=== PATIENT | female | born 1935 | race Caucasian/White ===

== ENCOUNTER 2016-12-19 07:59 | Inpatient (IN) | payer MEDICARE ==
[~2016-12-19] VITALS: Ht 165.1 cm; Wt 72.4 kg
[~2016-12-19 07:59] MED LIST: ALEN70TA5 PO; CITA10TA4 PO; DICL75TA2 PO; GABA600T PO; LISI-170 PO; LOVA40TA2 PO; METH750T87 PO; OMEP-110 PO; OXYC-302 PO
[2016-12-19] MEDS ORDERED: SODIUM CHLORIDE FLUSH 10ML SYR IVF ONE (09:00)
[2016-12-19] MEDS ORDERED: DICL75TA2 PO (09:03)
[2016-12-19 09:11] LABS: ASPARTATE AMINO TRANSFERASE 16 U/L (15-37); BLOOD UREA NITROGEN 24 mg/dL (7-18)
[2016-12-19 09:15] LABS: IS PT STATUS REG ER OR PRE ER? YES
[2016-12-19] MEDS ORDERED: LEVOFLOXACIN/PMX 750MG/150ML 150 ML ONE (09:34)
[2016-12-19 11:49] VITALS: BP 147/73
[2016-12-19] MEDS ORDERED: ONDANSETRON 2MG/ML, 2ML IVP PRN (13:00)
[2016-12-19] MEDS ORDERED: ACETAMINOPHEN 325 MG TABLET PO PRN (13:00)
[2016-12-19] MEDS ORDERED: ONDANSETRON ODT 4 MG PO PRN (13:00)
[2016-12-19] MEDS ORDERED: DOCUSATE 100 MG CAPSULE PO PRN (13:00)
[2016-12-19] MEDS ORDERED: BISACODYL 10 MG SUPP PR PRN (13:00)
[2016-12-19] MEDS ORDERED: POLYETHYLENE GLYCOL 17 GM PACKET PO PRN (13:00)
[2016-12-19] MEDS: METOPROLOL TARTRATE 25 MG TABLET PO SCH ×2 (14:00→21:10)
[2016-12-19 14:35] VITALS: BP 164/67
[2016-12-19 14:46] LABS: IS PT STATUS REG ER OR PRE ER? NO
[2016-12-19] MEDS: GABAPENTIN 300 MG CAPSULE PO SCH ×2 (15:47→21:10)
[2016-12-19 20:00] VITALS: BP 143/77
[2016-12-19] MEDS ORDERED: LOVASTATIN 40 MG TABLET PO SCH (21:00)
[2016-12-19] MEDS: LOVASTATIN 40 MG TABLET PO SCH (21:00)
[2016-12-19] MEDS: LACTULOSE 10 GM/15 ML UDC PO SCH (21:00)
[2016-12-19 22:14] LABS: IS PT STATUS REG ER OR PRE ER? NO
[2016-12-19] MEDS ORDERED: PRAMOXINE/ZINC OXIDE 28GM EXT PRN (22:30)
[2016-12-20 02:00] VITALS: BP 134/71
[2016-12-20 05:40] VITALS: BP 130/51
[2016-12-20] MEDS: METOPROLOL TARTRATE 25 MG TABLET PO SCH ×2 (05:41→17:55)
[2016-12-20 06:30] VITALS: BP 121/50
[2016-12-20 06:54] LABS: BLOOD UREA NITROGEN 21 mg/dL (7-18)
[2016-12-20] MEDS: OMEPRAZOLE 20 MG CAPSULE.DR PO SCH (08:07)
[2016-12-20] MEDS: GABAPENTIN 300 MG CAPSULE PO SCH ×3 (08:07→20:41)
[2016-12-20] MEDS: CITALOPRAM 10 MG TABLET PO SCH (08:07)
[2016-12-20] MEDS: LACTULOSE 10 GM/15 ML UDC PO SCH ×2 (08:07→20:41)
[2016-12-20] MEDS: LISINOPRIL 20 MG TABLET PO SCH ×2 (08:08)
[2016-12-20 13:59] VITALS: BP 88/66
[2016-12-20] MEDS ORDERED: FENTANYL PF 100 MCG/2ML ONE (15:29)
[2016-12-20] MEDS ORDERED: BIVALIRUDIN 250 MG ONE (15:30)
[2016-12-20] MEDS ORDERED: VERAPAMIL 2.5 MG/ML, 2ML ONE (15:30)
[2016-12-20] MEDS ORDERED: NITROGLYCERIN 5 MG/ML, 10ML ONE (15:30)
[2016-12-20] MEDS ORDERED: TICAGRELOR 90 MG TABLET ONE (15:30)
[2016-12-20] MEDS ORDERED: HEPARIN 1,000 UNITS/ML, 10ML ONE (15:30)
[2016-12-20] MEDS ORDERED: MIDAZOLAM 1 MG/ML, 5ML ONE (15:30)
[2016-12-20] MEDS ORDERED: LIDOCAINE 2%, 20ML ONE (15:30)
[2016-12-20] MEDS ORDERED: ACETAMINOPHEN 325 MG TABLET PO PRN (16:30)
[2016-12-20 19:07] VITALS: BP 88/42
[2016-12-20] MEDS: LOVASTATIN 40 MG TABLET PO SCH (20:41)
[2016-12-21 02:00] VITALS: BP 119/51
[2016-12-21 06:03] LABS: HEMOGLOBIN 11.6 g/dL (11.7-16.4)
[2016-12-21] MEDS: METOPROLOL TARTRATE 25 MG TABLET PO SCH (06:17)
[2016-12-21 06:40] VITALS: BP 135/69
[2016-12-21] MEDS: CITALOPRAM 10 MG TABLET PO SCH (08:57)
[2016-12-21] MEDS: LISINOPRIL 20 MG TABLET PO SCH ×2 (08:57→08:58)
[2016-12-21] MEDS: OMEPRAZOLE 20 MG CAPSULE.DR PO SCH (08:57)
[2016-12-21] MEDS: GABAPENTIN 300 MG CAPSULE PO SCH ×2 (08:58→16:00)
[2016-12-21] MEDS: LACTULOSE 10 GM/15 ML UDC PO SCH (08:58)
[2016-12-21 12:46] VITALS: BP 135/71
[2016-12-21] MEDS ORDERED: METO25TA35 PO (13:32)
== END 2016-12-21 16:17 | disposition home or self-care (01) | DRG 287 ==
LOC: ED 09:47 → INTOOBSV 09:48 → EDIP 09:48 → ED 09:56 → 5SO 11:32 → OBSVTOIN 12-20 16:03
PROVIDERS: ADMIT Internal Medicine; ATTEND Internal Medicine
PROC: B2111ZZ Fluoroscopy of Multiple Coronary Arteries using Low Osmolar Contrast (ICD-10-PCS; principal; 2016-12-20)
PROC: 4A023N7 Measurement of Cardiac Sampling and Pressure, Left Heart, Percutaneous Approach (ICD-10-PCS; 2016-12-20)
DX: I35.0 Nonrheumatic aortic (valve) stenosis (principal); E78.5 Hyperlipidemia, unspecified; I10 Essential (primary) hypertension; I49.3 Ventricular premature depolarization; B19.20 Unspecified viral hepatitis C without hepatic coma; F32.9 Major depressive disorder, single episode, unspecified; I25.10 Atherosclerotic heart disease of native coronary artery without angina pectoris; M19.90 Unspecified osteoarthritis, unspecified site; D72.819 Decreased white blood cell count, unspecified; Z85.6 Personal history of leukemia; Z90.49 Acquired absence of other specified parts of digestive tract; Z87.891 Personal history of nicotine dependence
CPT/HCPCS: 36415; 71010; 80048; 80053; 83735; 83880; 84484; 85025; 85610; 93005; 93306; 93458; 99285; C1894; G0378; J0583; J1644; J2250; J3010; J3490; Q9967

== ENCOUNTER 2017-05-25 08:35 | Inpatient (IN) | payer MEDICARE ==
[2017-05-24 13:34] VITALS: BP 171/67
[2017-05-24 13:37] LABS: HEMATOCRIT 42.9 % (34.6-47.8); HEMOGLOBIN 14.1 g/dL (11.7-16.4); WHITE BLOOD COUNT 4.2 x10^3/uL (3.4-10)
[2017-05-24 13:48] LABS: BLOOD UREA NITROGEN 25 mg/dL (7-18)
[2017-05-24 13:51] LABS: ASPARTATE AMINO TRANSFERASE 15 U/L (15-37)
[~2017-05-25] VITALS: Ht 165.1 cm; Wt 74.4 kg
[~2017-05-25 08:35] MED LIST changes: +CLOP75TA PO; +METO25TA35 PO
[2017-05-25] MEDS ORDERED: SODIUM CHLORIDE 0.9% 1,000 ML IV SCH ×2 (09:34)
[2017-05-25] MEDS ORDERED: ISOPROTERENOL 0.2MG/ML, 5ML ONE (11:34)
[2017-05-25] MEDS ORDERED: HEPARIN 1,000 UNITS/ML, 10ML ONE (11:35)
[2017-05-25] MEDS ORDERED: MIDAZOLAM 1 MG/ML, 5ML ONE (11:40)
[2017-05-25] MEDS ORDERED: FENTANYL PF 100 MCG/2ML ONE (11:40)
[2017-05-25] MEDS ORDERED: LIDOCAINE 2%, 20ML ONE ×2 (11:44→12:18)
[2017-05-25] MEDS ORDERED: PROPOFOL 10 MG/ML, 20ML ONE (11:54)
[2017-05-25] MEDS ORDERED: SUCCINYLCHOLINE 20 MG/ML, 10ML ONE (11:54)
[2017-05-25] MEDS ORDERED: DEXAMETHASONE 4 MG/ML, 1ML ONE (11:54)
[2017-05-25] MEDS ORDERED: CEFAZOLIN 1,000 MG ONE ×2 (11:54→12:18)
[2017-05-25] MEDS ORDERED: ONDANSETRON 2MG/ML, 2ML ONE (11:54)
[2017-05-25] MEDS ORDERED: ZOLPIDEM 5MG TABLET PO PRN (13:30)
[2017-05-25] MEDS ORDERED: HYDROcodone/APAP 5/325 TABLET PO PRN (13:30)
[2017-05-25] MEDS ORDERED: ACETAMINOPHEN 650 MG/20.3 ML UDC ONE (13:43)
[2017-05-25] MEDS ORDERED: FENTANYL PF 100 MCG/2ML IV PRN (14:00)
[2017-05-25] MEDS ORDERED: HYDROmorphone 1 MG/ML, 1ML IV PRN (14:00)
[2017-05-25] MEDS ORDERED: OXYcodone 5 MG/5 ML ORAL.SOL UDC PO PRN (14:00)
[2017-05-25] MEDS ORDERED: MIDAZOLAM 1 MG/ML, 2ML IV PRN (14:00)
[2017-05-25] MEDS ORDERED: ACETAMINOPHEN 325 MG TABLET PO PRN (14:00)
[2017-05-25] MEDS ORDERED: ONDANSETRON 2MG/ML, 2ML IVPush PRN (14:00)
[2017-05-25] MEDS: SOTALOL 80MG TABLET PO SCH (17:31)
[2017-05-25 20:26] VITALS: BP 121/59
[2017-05-25] MEDS: CEFAZOLIN PMX 1GM/50ML 50 ML IVPB SCH ×2 (20:33→21:00)
[2017-05-25] MEDS: LOVASTATIN 40 MG TABLET PO SCH (21:37)
[2017-05-25] MEDS: GABAPENTIN 300 MG CAPSULE PO SCH (21:37)
[2017-05-25] MEDS: SODIUM CHLORIDE FLUSH 10ML SYR IVF SCH (21:39)
[2017-05-26 01:57] VITALS: BP 127/56
[2017-05-26] MEDS: SOTALOL 80MG TABLET PO SCH ×2 (05:02→17:21)
[2017-05-26 07:16] VITALS: BP 162/73
[2017-05-26] MEDS ORDERED: CLOPIDOGREL 75 MG TABLET PO SCH (09:00)
[2017-05-26] MEDS: CITALOPRAM 10 MG TABLET PO SCH (09:48)
[2017-05-26] MEDS: LISINOPRIL 20 MG TABLET PO SCH (09:48)
[2017-05-26] MEDS: GABAPENTIN 300 MG CAPSULE PO SCH ×3 (09:48→21:59)
[2017-05-26] MEDS: DICLOFENAC SODIUM 75 MG TABLET.DR PO SCH (09:49)
[2017-05-26] MEDS: SODIUM CHLORIDE FLUSH 10ML SYR IVF SCH ×2 (10:00→21:59)
[2017-05-26 14:12] VITALS: BP 138/69
[2017-05-26 19:19] VITALS: BP 131/72
[2017-05-26] MEDS: LOVASTATIN 40 MG TABLET PO SCH (21:58)
[2017-05-27 02:00] VITALS: BP 156/70
[2017-05-27] MEDS: SOTALOL 80MG TABLET PO SCH (06:09)
[2017-05-27 06:45] VITALS: BP 152/84
[2017-05-27] MEDS ORDERED: SOTALOL 80MG TABLET PO ONE (09:00)
[2017-05-27] MEDS: DICLOFENAC SODIUM 75 MG TABLET.DR PO SCH (09:48)
[2017-05-27] MEDS: CITALOPRAM 10 MG TABLET PO SCH (09:49)
[2017-05-27] MEDS: LISINOPRIL 20 MG TABLET PO SCH (09:49)
[2017-05-27] MEDS: GABAPENTIN 300 MG CAPSULE PO SCH ×3 (09:49→20:53)
[2017-05-27] MEDS: SODIUM CHLORIDE FLUSH 10ML SYR IVF SCH ×2 (09:51→20:54)
[2017-05-27 13:28] VITALS: BP 126/73
[2017-05-27] MEDS: SOTALOL 120MG TABLET PO SCH (17:41)
[2017-05-27 19:20] VITALS: BP 139/79
[2017-05-27] MEDS: LOVASTATIN 40 MG TABLET PO SCH (20:54)
[2017-05-28 01:23] VITALS: BP 128/74
[2017-05-28 05:01] LABS: BLOOD UREA NITROGEN 31 mg/dL (7-18)
[2017-05-28 06:13] VITALS: BP 159/81
[2017-05-28] MEDS: SOTALOL 120MG TABLET PO SCH ×2 (06:16→17:27)
[2017-05-28 07:22] VITALS: BP 164/86
[2017-05-28] MEDS: GABAPENTIN 300 MG CAPSULE PO SCH ×3 (08:35→20:31)
[2017-05-28] MEDS: CITALOPRAM 10 MG TABLET PO SCH (08:35)
[2017-05-28] MEDS: SODIUM CHLORIDE FLUSH 10ML SYR IVF SCH ×2 (08:36→20:31)
[2017-05-28] MEDS: LISINOPRIL 20 MG TABLET PO SCH (08:36)
[2017-05-28] MEDS: DICLOFENAC SODIUM 75 MG TABLET.DR PO SCH (08:36)
[2017-05-28] MEDS: METOPROLOL SUCCINATE 25 MG TAB.ER.24H PO SCH (10:53)
[2017-05-28 13:39] VITALS: BP 145/73
[2017-05-28 18:40] VITALS: BP 163/73
[2017-05-28] MEDS: LOVASTATIN 40 MG TABLET PO SCH (20:31)
[2017-05-29 04:00] VITALS: BP 145/84
[2017-05-29 06:28] VITALS: BP 155/83
[2017-05-29] MEDS: METOPROLOL SUCCINATE 25 MG TAB.ER.24H PO SCH (06:30)
[2017-05-29] MEDS: SOTALOL 120MG TABLET PO SCH (06:30)
[2017-05-29 06:48] VITALS: BP 152/80
[2017-05-29] MEDS: LISINOPRIL 20 MG TABLET PO SCH (08:56)
[2017-05-29] MEDS: GABAPENTIN 300 MG CAPSULE PO SCH (08:56)
[2017-05-29] MEDS: CITALOPRAM 10 MG TABLET PO SCH (08:56)
[2017-05-29] MEDS: DICLOFENAC SODIUM 75 MG TABLET.DR PO SCH (08:56)
[2017-05-29] MEDS: SODIUM CHLORIDE FLUSH 10ML SYR IVF SCH (09:00)
[2017-05-29] MEDS ORDERED: SOTA120T14 PO (12:02)
[2017-05-29 13:00] VITALS: BP 150/73
[2017-05-31] MEDS ORDERED: ALENDRONATE 70 MG TABLET PO SCH (13:30)
== END 2017-05-29 14:31 | disposition home or self-care (01) | DRG 244 ==
LOC: STAR 08:35 → ORIP 13:16 → 5SO 14:39
PROVIDERS: ADMIT Internal Medicine Cardiovascular Disease; ATTEND Internal Medicine Cardiovascular Disease
PROC: 02H63JZ Insertion of Pacemaker Lead into Right Atrium, Percutaneous Approach (ICD-10-PCS; 2017-05-25)
PROC: 02HK3JZ Insertion of Pacemaker Lead into Right Ventricle, Percutaneous Approach (ICD-10-PCS; 2017-05-25)
PROC: 0JH606Z Insertion of Pacemaker, Dual Chamber into Chest Subcutaneous Tissue and Fascia, Open Approach (ICD-10-PCS; principal; 2017-05-25 11:00)
DX: I49.3 Ventricular premature depolarization (principal); I10 Essential (primary) hypertension; E78.5 Hyperlipidemia, unspecified; Z87.891 Personal history of nicotine dependence
CPT/HCPCS: 33208; 36415; 71010; 71020; 80048; 80053; 83735; 85025; 85610; 85730; 93005; C1779; C1785; C1892; J0690; J1100; J1644; J2250; J2405; J2704; J3010; J3490; J0330

== ENCOUNTER → 2018-11-22 | Outpatient (CLI) | payer MEDICARE ==
[~2018-11-22] MED LIST changes: -ALEN70TA5 PO; +ALEN70TA6 PO; -DICL75TA2 PO; +DICL75TA3 PO; +SOTA120T14 PO
[2018-11-22 12:57] LABS: ALANINE AMINOTRANSFERASE 20 U/L (12-78); ALBUMIN 3.5 g/dL (3.4-5.0); CALCIUM 8.7 mg/dL (8.5-10.1); CHLORIDE 109 mmol/L (98-107); CHOLESTEROL, TOTAL 151 mg/dL (140-239); CREATININE 0.93 mg/dL (0.55-1.02); TRIGLYCERIDES 224 mg/dL (50-200); VLDL CHOLESTEROL 45 mg/dL (0-25)
[2018-11-22 13:01] LABS: ALKALINE PHOSPHATASE 68 U/L (45-117); BILIRUBIN,TOTAL 0.5 mg/dL (0.2-1.0); CHOL/HDL RATIO 4.9; HDL CHOL % 21 % (28-40); HDL CHOLESTEROL (DIRECT) 31 mg/dL (40-60); LDL CHOLESTEROL,CALCULATED 75 mg/dL (54-169); LDL/HDL RATIO 2.4 (0.5-3.0); TOTAL PROTEIN 7.4 g/dL (6.4-8.2)
[2018-11-22 13:12] LABS: ANION GAP 4 mmol/L (5-15)
[2018-11-22 13:23] LABS: MEAN CORPUSCULAR HEMOGLOBIN 31.8 pg (27.0-34.8); MEAN CORPUSCULAR HGB CONC 33.9 g/dL (32.4-35.8); MEAN CORPUSCULAR VOLUME 93.8 fL (80-100); MEAN PLATELET VOLUME 9.7 fL (7.4-10.4); PLATELET COUNT 180 x10^3/uL (130-400); RED BLOOD COUNT 4.36 x10^6/uL (3.82-5.3); RED CELL DISTRIBUTION WIDTH 14.1 % (9.6-15.2)
== END | disposition home or self-care (01) ==
LOC: CFH 08:10
PROVIDERS: ATTEND Internal Medicine Cardiovascular Disease
DX: E78.5 Hyperlipidemia, unspecified (principal); I10 Essential (primary) hypertension; R73.01 Impaired fasting glucose
CPT/HCPCS: 36415; 80053; 80061; 83880; 85027

== ENCOUNTER → 2018-11-26 | Outpatient (CLI) | payer MEDICARE | END | disposition home or self-care (01) | LOC: CVU 08:29 | PROVIDERS: ATTEND Physician Assistant Medical | DX: I34.0 Nonrheumatic mitral (valve) insufficiency (principal); I11.9 Hypertensive heart disease without heart failure; Z95.0 Presence of cardiac pacemaker | CPT/HCPCS: 93306 ==

== ENCOUNTER → 2018-12-06 | Outpatient (CLI) | payer MEDICARE ==
[~2018-12-06] MED LIST changes: +REGADENOSON 0.4 MG/5 ML SYRINGE ONE
== END | disposition home or self-care (01) ==
LOC: RAD 10:15
PROVIDERS: ATTEND Internal Medicine Cardiovascular Disease
DX: I35.0 Nonrheumatic aortic (valve) stenosis (principal); R06.02 Shortness of breath
CPT/HCPCS: 78452; 93017; A9502; J2785

== ENCOUNTER → 2019-01-10 | Outpatient (CLI) | payer MEDICARE ==
[~2019-01-10] MED LIST changes: -REGADENOSON 0.4 MG/5 ML SYRINGE ONE
== END | disposition home or self-care (01) ==
LOC: CFH 13:39
PROVIDERS: ATTEND Internal Medicine
DX: I70.0 Atherosclerosis of aorta (principal); Z95.2 Presence of prosthetic heart valve
CPT/HCPCS: 71250

== ENCOUNTER → 2019-03-12 | Outpatient (CLI) | payer MEDICARE ==
[2019-03-12 15:59] LABS: ALBUMIN 3.8 g/dL (3.4-5.0)
[2019-03-12 16:05] LABS: BILIRUBIN, DIRECT 0.2 mg/dL (0.1-0.2); BILIRUBIN,INDIRECT 0.4 mg/dL (0.0-2.0); BILIRUBIN,TOTAL 0.6 mg/dL (0.2-1.0); CHOL/HDL RATIO 4.2; LDL/HDL RATIO 2.2 (0.5-3.0); TOTAL PROTEIN 7.4 g/dL (6.4-8.2)
== END | disposition home or self-care (01) ==
LOC: CFH 07:11
PROVIDERS: ATTEND Family Medicine
DX: E78.5 Hyperlipidemia, unspecified (principal)
CPT/HCPCS: 36415; 80061; 80076

== ENCOUNTER → 2019-09-05 | Outpatient (CLI) | payer MEDICARE ==
[2019-09-05 15:50] LABS: ALANINE AMINOTRANSFERASE 21 U/L (12-78); ALBUMIN 3.7 g/dL (3.4-5.0); ANION GAP 3 mmol/L (5-15); CALCIUM 9.1 mg/dL (8.5-10.1); CHLORIDE 109 mmol/L (98-107); CREATININE 1.45 mg/dL (0.55-1.02)
[2019-09-05 15:52] LABS: ALKALINE PHOSPHATASE 31 U/L (45-117); BILIRUBIN,TOTAL 0.5 mg/dL (0.2-1.0); TOTAL PROTEIN 7.2 g/dL (6.4-8.2)
== END | disposition home or self-care (01) ==
LOC: CFH 11:31
PROVIDERS: ATTEND Family Medicine
DX: E85.89 Other amyloidosis (principal)
CPT/HCPCS: 36415; 80053; 82784; 84155; 84156; 84165; 84166; 86334

== ENCOUNTER 2019-10-30 08:01 | Outpatient (CLI) | payer MEDICARE ==
[2019-10-30 13:01] LABS: MEAN CORPUSCULAR HEMOGLOBIN 33.2 pg (27.0-34.8); MEAN CORPUSCULAR HGB CONC 34.3 g/dL (32.4-35.8); MEAN CORPUSCULAR VOLUME 96.8 fL (80-100); MEAN PLATELET VOLUME 8.3 fL (7.4-10.4); PLATELET COUNT 210 x10^3/uL (130-400); RED CELL DISTRIBUTION WIDTH 13.2 % (9.6-15.2)
[2019-10-30 13:24] LABS: MICROSCOPIC NOT IND
[2019-10-30 13:36] LABS: CHLORIDE 107 mmol/L (98-107)
[2019-10-30 13:54] LABS: ALANINE AMINOTRANSFERASE 13 U/L (12-78); ALBUMIN 3.7 g/dL (3.4-5.0); ALKALINE PHOSPHATASE 30 U/L (45-117); ANION GAP 8 mmol/L (5-15); BILIRUBIN,TOTAL 0.7 mg/dL (0.2-1.0); CALCIUM 9.2 mg/dL (8.5-10.1); CHOL/HDL RATIO 3.9; CHOLESTEROL, TOTAL 109 mg/dL (140-239); HDL CHOL % 26 % (28-40); HDL CHOLESTEROL (DIRECT) 28 mg/dL (40-60); LDL CHOLESTEROL,CALCULATED 55 mg/dL (54-169); TOTAL PROTEIN 7.6 g/dL (6.4-8.2); TRIGLYCERIDES 130 mg/dL (50-200); VLDL CHOLESTEROL 26 mg/dL (0-25)
== END 2019-10-30 23:59 | disposition home or self-care (01) ==
LOC: CFH 08:01
PROVIDERS: ATTEND Internal Medicine Cardiovascular Disease
DX: E78.5 Hyperlipidemia, unspecified (principal); I12.9 Hypertensive chronic kidney disease with stage 1 through stage 4 chronic kidney disease, or unspecified chronic kidney disease; N18.4 Chronic kidney disease, stage 4 (severe); R73.01 Impaired fasting glucose; B18.2 Chronic viral hepatitis C; G62.9 Polyneuropathy, unspecified
CPT/HCPCS: 36415; 80053; 80061; 81003; 82043; 82306; 83036; 84439; 84443; 84480; 85027; 86803

== ENCOUNTER 2019-11-06 10:30 | Outpatient (CLI) | payer MEDICARE | END 2019-11-06 23:59 | disposition home or self-care (01) | LOC: CFH 10:30 | PROVIDERS: ATTEND Family Medicine | DX: Z12.31 Encounter for screening mammogram for malignant neoplasm of breast (principal); M81.0 Age-related osteoporosis without current pathological fracture | CPT/HCPCS: 77080; 77067 ==

== ENCOUNTER → 2020-06-01 | Outpatient (CLI) | payer MEDICARE ==
[2020-06-01 13:04] LABS: MICROSCOPIC AUTO
[2020-06-01 13:09] LABS: BASOPHILS # (AUTO) 0.02 x10^3/uL (0-0.1); BASOPHILS % (AUTO) 1 % (0-1); EOSINOPHILS # (AUTO) 0.03 x10^3/uL (0-0.4); EOSINOPHILS % (AUTO) 1 % (1-7); LYMPHOCYTES # (AUTO) 0.71 x10^3/uL (1-3.4); LYMPHOCYTES % (AUTO) 23 % (22-44); MD NO; MEAN CORPUSCULAR HEMOGLOBIN 31.3 pg (27.0-34.8); MEAN CORPUSCULAR HGB CONC 32.7 g/dL (32.4-35.8); MEAN CORPUSCULAR VOLUME 95.6 fL (80-100); MONOCYTES % (AUTO) 10 % (2-9); NEUTROPHILS # (AUTO) 2.05 x10^3/uL (1.8-6.8); NEUTROPHILS % (AUTO) 66 % (42-75); PLATELET COUNT 236 x10^3/uL (130-400); RED BLOOD COUNT 4.24 x10^6/uL (3.82-5.3)
[2020-06-01 13:15] LABS: CALCIUM 9.3 mg/dL (8.5-10.1); CHLORIDE 108 mmol/L (98-107)
[2020-06-01 13:43] LABS: ALANINE AMINOTRANSFERASE 13 U/L (12-78); ALBUMIN 3.7 g/dL (3.4-5.0); ALKALINE PHOSPHATASE 30 U/L (45-117); ANION GAP 4 mmol/L (5-15); BILIRUBIN,TOTAL 0.6 mg/dL (0.2-1.0); CHOL/HDL RATIO 3.5; CHOLESTEROL, TOTAL 112 mg/dL (140-239); CREATININE 1.27 mg/dL (0.55-1.02); FREE T4 (FREE THYROXINE) 1.07 ng/dL (0.76-1.46); HDL CHOL % 29 % (28-40); HDL CHOLESTEROL (DIRECT) 32 mg/dL (40-60); LDL CHOLESTEROL,CALCULATED 56 mg/dL (54-169); LDL/HDL RATIO 1.8 (0.5-3.0); TOTAL PROTEIN 7.7 g/dL (6.4-8.2); TRIGLYCERIDES 120 mg/dL (50-200); VLDL CHOLESTEROL 24 mg/dL (0-25)
== END | disposition home or self-care (01) ==
LOC: CFH 07:34
PROVIDERS: ATTEND Internal Medicine Cardiovascular Disease
DX: I12.9 Hypertensive chronic kidney disease with stage 1 through stage 4 chronic kidney disease, or unspecified chronic kidney disease (principal); N18.4 Chronic kidney disease, stage 4 (severe); G62.9 Polyneuropathy, unspecified; E78.5 Hyperlipidemia, unspecified; R73.01 Impaired fasting glucose; I49.40 Unspecified premature depolarization; R06.02 Shortness of breath; Z68.27 Body mass index [BMI] 27.0-27.9, adult; Z85.6 Personal history of leukemia
CPT/HCPCS: 36415; 80053; 80061; 81001; 82043; 82306; 82607; 82746; 83036; 84439; 84443; 84480; 85025

== ENCOUNTER → 2021-01-19 | Outpatient (CLI) | payer MEDICARE ==
[~2021-01-19] MED LIST changes: -ALEN70TA6 PO; +ALEN70TA77 PO; -OXYC-302 PO; +OXYC1TAB14 PO
== END | disposition home or self-care (01) ==
LOC: CFH 10:42
PROVIDERS: ATTEND Internal Medicine Cardiovascular Disease
DX: I08.8 Other rheumatic multiple valve diseases (principal)
CPT/HCPCS: 93306